=== PATIENT | female | born 1960 | race Caucasian/White ===

== ENCOUNTER 2020-07-26 10:30 | Emergency (ER) | payer MEDICARE ==
[2020-07-26 12:30] LABS: #Eosinphils 0.1 10x3/uL (0.0-0.5); #Monocytes 0.6 10x3/uL (0.0-1.1); %Basophils 0.3 % (0.0-2.0); %Eosinophils 1.1 % (0.0-6.0); %Lymphocytes 24.7 % (18.0-47.0); %Monocytes 6.5 % (0.0-10.0); %Neutrophils 67.1 % (40.0-75.0); Hemoglobin 14.3 g/dL (12.0-15.5); Mean Corpuscular HGB CONC 33.8 g/dL (32.0-36.0); Mean Corpuscular Hemoglobin 31.7 pg (27.0-33.0); Mean Corpuscular Volume 93.8 fl (81.6-98.3); Mean Platelet Volume 11.6 fl (7.4-10.4); Platelet Count 295 10x3/uL (150-450); Red Blood Cell (RBC) Count 4.51 10x6/uL (3.90-5.03)
[2020-07-26 12:45] LABS: ALT (SGPT) 29 U/L (8-55); AST (SGOT) 24 U/L (5-34); Albumin 4.3 g/dL (3.5-5.0); Alkaline Phosphatase 105 U/L (40-110); Anion Gap 15 mmol/L (10-20); BUN (Urea Nitrogen) 11 mg/dL (9.8-20.1); Bilirubin, Total 0.4 mg/dL (0.2-1.2); CK (CPK) 65 U/L (29-168); Calc. Creatinine Clearance 0 mL/min (70-130); Calcium 10.5 mg/dL (7.8-10.44); Carbon Dioxide 28 mmol/L (22-29); Chloride 102 mmol/L (98-107); Globulin 3.1 g/dL (2.4-3.5); Glucose 114 mg/dL (70-105); Lipase 76 U/L (8-78); Potassium 3.7 mmol/L (3.5-5.1); Protein, Total 7.4 g/dL (6.0-8.3); Sodium 141 mmol/L (136-145)
[2020-07-26 12:46] LABS: INR-International Normal Ratio 0.9; PTT 26.8 sec (22.0-33.0); Prothrombin Time 10.5 sec (9.5-12.1)
== END 2020-07-26 14:25 | disposition home or self-care (01) ==
LOC: CSHERS 10:30
DX: A09 Infectious gastroenteritis and colitis, unspecified (principal); K62.5 Hemorrhage of anus and rectum; E11.9 Type 2 diabetes mellitus without complications; E03.9 Hypothyroidism, unspecified; E78.2 Mixed hyperlipidemia; Z79.899 Other long term (current) drug therapy
CPT/HCPCS: 74177; 80053; 82274; 82550; 83605; 83690; 85025; 85610; 85730

== ENCOUNTER 2021-08-18 16:06 | Outpatient (CLI) | payer MEDICARE | END 2021-08-18 16:07 | disposition home or self-care (01) | LOC: CSHULT 16:06 | PROVIDERS: ATTEND Otolaryngology Otolaryngic Allergy | DX: E04.1 Nontoxic single thyroid nodule (principal); E07.89 Other specified disorders of thyroid | CPT/HCPCS: 76536 ==

== ENCOUNTER 2024-11-25 04:57 | Observation (INO) | payer MEDICARE ==
[2024-11-25] MEDS ORDERED: Senokot S 8.6-50 MG TAB PO PRN (06:35)
[2024-11-25] MEDS ORDERED: Ondansetron PF 4 MG/2 ML Vial IVP PRN (06:35)
[2024-11-25] MEDS ORDERED: Acetaminophen 325 MG TAB PO PRN (06:35)
[2024-11-25] MEDS ORDERED: Calcium Carbonate 500 MG ChewTAB PO PRN (06:35)
[2024-11-25] MEDS ORDERED: Dextrose 50% Abboject 50 ML SYRINGE SLOW IVP PRN (06:48)
[2024-11-25] MEDS ORDERED: Glucagon 1 MG/ML KIT IM PRN (06:48)
[2024-11-25 06:57] VITALS: BMI 27.4
[2024-11-25] MEDS ORDERED: B COMPLEX WITH VITAMIN C PO SCH (09:00)
[2024-11-25] MEDS ORDERED: [UNRECOGNIZED DRUG - OTHER] PO SCH (09:00)
[2024-11-25 09:47] LABS: Troponin I 0.030 ng/mL (< 0.028)
[2024-11-25 10:01] LABS: Free T4 (Free Thyroxine) 0.62 ng/dL (0.70-1.48); Thyroid Stimulating Hormone 12.5357 uIU/mL (0.35-4.94)
[2024-11-25] MEDS: Folic Acid 1 MG TAB PO SCH (10:11)
[2024-11-25] MEDS: Aspirin 325 MG TAB PO SCH (10:11)
[2024-11-25] MEDS: Pantoprazole 40 MG DR.TAB PO SCH (10:11)
[2024-11-25] MEDS: Cholecalciferol (Vitamin D3) 400 UNITS TAB PO SCH (10:12)
[2024-11-25] MEDS: PARoxetine 20 MG TAB PO SCH (10:13)
[2024-11-25] MEDS: Multivit, Therapeutic 1 TAB PO SCH (10:14)
[2024-11-25] MEDS: Atenolol 50 MG TAB PO SCH (10:18)
[2024-11-25] MEDS: Floranex 1 GM Packet PO SCH (10:18)
[2024-11-25] MEDS: predniSONE 20 MG TAB PO SCH (10:19)
[2024-11-25 12:49] VITALS: BP 170/93; TEMP 97.2
[2024-11-25] MEDS ORDERED: Melatonin 3 MG TAB PO SCH (21:00)
[2024-11-25] MEDS ORDERED: Losartan 25 MG TAB PO SCH (21:00)
[2024-11-25] MEDS ORDERED: Enoxaparin 40 MG (0.4 mL) SYRINGE SC SCH (21:00)
== END 2024-11-25 15:15 | disposition left against medical advice (07) ==
LOC: CSHTELE 06:12
PROVIDERS: ADMIT Student in an Organized Health Care Education/Training Program; ATTEND Student in an Organized Health Care Education/Training Program
PROC: B24BZZZ Ultrasonography of Heart with Aorta (ICD-10-PCS; principal; 2024-11-25)
DX: I25.118 Atherosclerotic heart disease of native coronary artery with other forms of angina pectoris (principal); I10 Essential (primary) hypertension; I48.0 Paroxysmal atrial fibrillation; E11.40 Type 2 diabetes mellitus with diabetic neuropathy, unspecified; E78.2 Mixed hyperlipidemia; E03.9 Hypothyroidism, unspecified; F32.A Depression, unspecified; K21.9 Gastro-esophageal reflux disease without esophagitis; Z87.59 Personal history of other complications of pregnancy, childbirth and the puerperium; Z95.1 Presence of aortocoronary bypass graft; Z90.49 Acquired absence of other specified parts of digestive tract; Z90.710 Acquired absence of both cervix and uterus; Z88.5 Allergy status to narcotic agent; Z88.8 Allergy status to other drugs, medicaments and biological substances; Z88.2 Allergy status to sulfonamides; Z91.018 Allergy to other foods; Z79.82 Long term (current) use of aspirin; Z79.899 Other long term (current) drug therapy; R07.2 Precordial pain; E11.9 Type 2 diabetes mellitus without complications; F17.210 Nicotine dependence, cigarettes, uncomplicated; Z55.6 Problems related to health literacy
CPT/HCPCS: 82962; 83036; 84439; 84443; 84484; 93306; G0378; 36415; 36416; 71045; 80053; 83690; 83735; 83880; 85025; 93005